=== PATIENT | male | born 1990 | race Two or more races ===

== ENCOUNTER → 2016-09-07 | Outpatient (REF) | payer OTHER | LOC: M SFHCLERA 12:34 | PROVIDERS: ATTEND Nurse Practitioner Family | DX: R50.9 Fever, unspecified (principal) ==

== ENCOUNTER → 2017-04-28 | Outpatient (CLI) | payer OTHER ==
[~2017-04-28] MED LIST: IBUP-1114 PO; LISI10TA4 PO
[2017-04-28 13:41] LABS: MEAN CORPUSCULAR HEMOGLOBIN 28.7 pg (27.0-33.0); MEAN CORPUSCULAR HGB CONC 33.3 g/dl (32.0-36.5); MEAN CORPUSCULAR VOLUME 86.2 fl (80.0-96.0); RED CELL DISTRIBUTION WIDTH 13.2 % (11.5-14.5); WHITE BLOOD COUNT 6.9 10^3/uL (4.0-10.0)
[2017-04-28 13:44] LABS: ANION GAP 3 MEQ/L (8-16); BLOOD UREA NITROGEN 23 MG/DL (7-18); CALCIUM LEVEL 9.8 MG/DL (8.5-10.1); CARBON DIOXIDE LEVEL 33 MEQ/L (21-32); CHLORIDE LEVEL 102 MEQ/L (98-107); GLOMERULAR FILTRATION RATE > 60.0 (>60); GLUCOSE, FASTING 80 MG/DL (70-105); POTASSIUM SERUM 4.5 MEQ/L (3.5-5.1); SODIUM LEVEL 138 MEQ/L (136-145)
[2017-04-28 13:45] LABS: INR 0.95
== END ==
LOC: M SMT 08:53
PROVIDERS: ATTEND Nurse Practitioner Women's Health
DX: N50.3 Cyst of epididymis (principal); Z01.818 Encounter for other preprocedural examination

== ENCOUNTER → 2017-05-03 | Outpatient (CLI) | payer OTHER ==
--- NOTE | 2017-05-04 05:24 | REP ---
Clinical: Acute renal insufficiency history of hypertension. Technique: Real time bae scale ultrasound examination using curved array transducer. Findings: The bilateral kidneys are normal in contour, size, echogenicity, and reniform shape without hydronephrosis, nephrolithiasis, cystic or mass lesion. No perinephric fluid collections are identified. Right kidney measures 10.7 x 6.8 x 4.4 cm. Left kidney measures 12.4 x 5.4 x 5.9 cm. Bladder is normal in appearance without wall thickening or mass lesion and bilateral ureteral jets are identified. Prevoid bladder measures 10.9 x 9.9 x 9.7 cm (543 ml). Prostate gland is grossly unremarkable and measures 3.3 x 4.1 x 3.1 cm (22 ml). Impression: Normal renal ultrasound. Signed by Roosevelt Azul MD 05/04/2017 05:15 A
== END ==
LOC: M SMT 07:59
PROVIDERS: ATTEND Nurse Practitioner Women's Health
DX: N28.9 Disorder of kidney and ureter, unspecified (principal)

== ENCOUNTER 2017-06-09 08:26 | Day surgery (SDC) | payer OTHER ==
[~2017-06-09] VITALS: Ht 170.2 cm; Wt 99.3 kg
[2017-06-09] MEDS ORDERED: PROPOFOL 200 MG/20 ML VIAL As Ordered ONE (08:36)
[2017-06-09] MEDS ORDERED: LIDOCAINE 2% INJ 100 MG/5 ML SDV (FOR ANES.) As Ordered ONE (08:36)
[2017-06-09] MEDS ORDERED: fentaNYL 100 MCG/2 ML INJECTION (J3010) As Ordered ONE (08:37)
[2017-06-09] MEDS ORDERED: MIDAZOLAM INJ 2 MG/2 ML VIAL (J2250) As Ordered ONE (08:37)
[2017-06-09] MEDS ORDERED: LR 1,000 ML IV ONE (09:00)
[2017-06-09] MEDS ORDERED: LIDOCAINE 1% MDV 20ML VIAL SQ PRN (09:00)
[2017-06-09] MEDS ORDERED: BUPIVACAINE HCL 0.25% 30 ML VIAL As Ordered ONE (09:18)
[2017-06-09] MEDS ORDERED: dexameTHASONE 4 MG/ML 1ML VIAL (J1100) As Ordered ONE (09:58)
[2017-06-09] MEDS ORDERED: ePHEDrine SULFATE 25 MG/5 ML(5MG/ML) SYRINGE As Ordered ONE (09:58)
[2017-06-09] MEDS ORDERED: ONDANSETRON 4MG/2ML VIAL (J2405) As Ordered ONE (09:58)
[2017-06-09] MEDS ORDERED: KETOROLAC 60 MG/2 ML VIAL (J1885) As Ordered ONE (09:58)
[2017-06-09] MEDS ORDERED: BACITRACIN OINT 30GM As Ordered ONE (10:23)
[2017-06-09] MEDS ORDERED: TYLE650T35 PO (10:44)
[2017-06-09] MEDS ORDERED: BACT800T5 PO (10:44)
[2017-06-09] MEDS ORDERED: fentaNYL 100 MCG/2 ML INJECTION (J3010) IV PRN (11:00)
[2017-06-09] MEDS ORDERED: PERCOCET 5MG/325MG TAB PO PRN (11:00)
[2017-06-09] MEDS ORDERED: LR 1,000 ML IV SCH (11:00)
[2017-06-09] MEDS ORDERED: ONDANSETRON 4MG/2ML VIAL (J2405) IV PRN (11:00)
[2017-06-09 11:45] VITALS: BP 124/59
--- NOTE | 2017-06-10 07:27 | RO ---
DATE OF PROCEDURE: 06/09/2017 PREPROCEDURE DIAGNOSIS: Left epididymal cyst. POSTPROCEDURE DIAGNOSIS: Left epididymal cyst. FINDINGS: Left epididymal cyst of about 3 cm in diameter. PROCEDURE: Left epididymal cyst excision. SURGEON: Ottoniel Vaz MD CELERY TIER: None. ANESTHESIA: General. COMPLICATIONS: None. ESTIMATED BLOOD LOSS: Minimal. HISTORY OF THE PRESENT ILLNESS: A 26-year-old male patient who has a left epididymal cyst, and it is painful. For this reason, he has consented for a left epididymal cyst excision. DESCRIPTION OF PROCEDURE: In a patient in supine position, after prepping and draping the area of concern, which included the entire genitalia and abdomen, we started by doing a transverse incision for about 4 cm in length in the left hemiscrotal sac. With electro Bovie cautery, we opened the left hemiscrotal wall and opened the tunica vaginalis longitudinally and inverted it with #3-0 inversion of the tunica vaginalis. We then identified the epididymal cyst in the head of the epididymis and with cuticular scissors, we actually could excise the cyst completely and send it for permanent pathology analysis. We then repaired the tunica vaginalis on top of the epididymis with a #4-0 running chromic and then put the testicle inside the scrotal sac and closed the scrotal sac in two layers with a running chromic #3-0 the first layer and a running #3-0 chromic in the scrotal skin. We then placed Bacitracin, fluffs and scrotal support. PLAN: The patient will go home with antibiotic pain medication, followup in 2 weeks at [facility] [place]. He may shower in 3 days. No heavy lifting for 1 month. Cyst was sent for permanent pathology analysis.
== END 2017-06-09 12:12 | disposition home or self-care (01) ==
LOC: M SDC 08:26
PROVIDERS: ATTEND Urology
DX: N50.3 Cyst of epididymis (principal); I10 Essential (primary) hypertension; Z79.899 Other long term (current) drug therapy
CPT/HCPCS: 54840; 88305; J1100; J2250; J2405; J3010

== ENCOUNTER → 2017-06-17 | Outpatient (CLI) | payer OTHER ==
[~2017-06-17] MED LIST changes: +BACT800T5 PO; +PROHANCE 279.3MG/ML 15ML VIAL (A9576) As Ordered ONE; +PROHANCE 279.3MG/ML 5ML VIAL (A9576) As Ordered ONE; +TYLE650T35 PO
--- NOTE | 2017-06-21 10:04 | REP ---
MRI ANKLE WITHOUT WITH CONTRAST: 06/17/2017. Comparison: 05/17/2017 MRI, x-ray 05/07/2017 at [facility]. Clinical history: Soft tissue mass left ankle anterolaterally. Seen are soft tissue swelling by x-ray. An ultrasound identified a mass but is not available to me. Technique and technique: Coronal T1 and T2 STIR, sagittal T1 and T2 STIR with axial T1 and fat suppressed T2 sequences. Subsequently T1 fat suppressed axial and sagittal images with coronal fat suppressed T2 followed by infusion of 910 mL ProHance and repeat of those sequences. Markers placed over the region of the palpable finding. Scanning again shows that soft tissue mass anterolateral aspect of the ankle in the region of the sinus tarsi. There is adjacent edema. Some reactive marrow edema and cystic changes in the adjacent calcaneus, it abuts the lateral margin of the talus. The subtalar joints are otherwise intact and without effusion. There may be slight thinning of the cortex of the anterior margin of the posterior subtalar joint with adjacent edema in the neck that calcaneus. No marrow abnormalities in the talus and nor destructive/erosive changes of that bone. Lesion is anterior to the peroneus tendons. It is inferior and anterior to the distal tip of the medial malleolus. The AT, EDL and EHL tendons were grossly intact. The PT, FDL, FHL and Achilles tendons insertions were intact. I do not see to the synovitis or enhancement about the tendons nor abnormal signal in the tendons. Other than the marrow at the junction of the body and anterior process of the calcaneus laterally. There is no other marrow signal abnormality in the ankle and hindfoot. There is no evidence of a joint effusion. Anterior talofibular and tibiotalar ligaments are seen subjacent to the mass. Hyperintense signal on the fat-suppressed T1 and the standard fat suppressed T2 images does not show significant enhancement on the postcontrast study. There is no abnormal enhancement in the marrow of any of the bones. There are no other soft tissue masses visible. Impression: 1. 4.3 x 1.4 x 2.8 cm hyperintense T2 and intermediate signal standard T1, hyperintense fat suppressed T1 sequence without significant enhancement. The tendons, adjacent ligaments, and bone marrow with the exception of the region of the calcaneus adjacent appears intact. I cannot clearly define destructive changes in the cortex of any of the bones. No joint effusion or osteochondral defect in the talar dome. Tendons and ligaments intact. Neoplasm, fibromatosis or other pathologies are suspected. Signed by Will Angel MD 06/22/2017 05:51 P
== END ==
LOC: M RAD 09:28
PROVIDERS: ATTEND Orthopaedic Surgery
DX: M85.9 Disorder of bone density and structure, unspecified (principal)

== ENCOUNTER → 2017-11-25 | Outpatient (CLI) | payer OTHER | LOC: M SLEEP 19:36 | DX: G47.33 Obstructive sleep apnea (adult) (pediatric) (principal) | CPT/HCPCS: 95810 ==

== ENCOUNTER → 2017-12-22 | Outpatient (CLI) | payer OTHER | LOC: M RAD 08:45 | DX: M79.9 Soft tissue disorder, unspecified (principal); M12.271 Villonodular synovitis (pigmented), right ankle and foot; Z98.890 Other specified postprocedural states | CPT/HCPCS: 73721 ==

== ENCOUNTER → 2017-12-23 | Outpatient (CLI) | payer OTHER | LOC: M SLEEP 19:32 | DX: G47.33 Obstructive sleep apnea (adult) (pediatric) (principal) ==

== ENCOUNTER → 2018-01-18 | Outpatient (REF) | payer OTHER ==
[2018-01-18 14:10] LABS: SEMEN APPEARANCE OPAQUE (OPAQUE); SEMEN VISCOSITY LIQUID (LIQUID); SEMEN VOLUME 1.5 ml (4.0-5.0); SPERM CONCENTRATION 70.2 M/ml (>=15.0); WBC CONCENTRATION <=1 M/ml (<=1 M/ml)
[2018-01-18 14:11] LABS: % NORMAL FORMS 9 % (>=4); IMMOTILITY 54 %; NON PROGRESSIVE MOTILITY (c) 8 %; PROGRESSIVE MOTILITY (a) 38 % (>=32); SPERM# 105.3 M/Ejac (>=39); TOTAL FUNCTIONAL 8.3 M/Ejac.; TOTAL MOTILITY 46 % (>=40); TOTAL PROGRESSIVE SPERM 39.7 M/Ejac.
== END ==
LOC: M LAB REF 11:28
DX: N46.9 Male infertility, unspecified (principal)
CPT/HCPCS: 89320

== ENCOUNTER 2018-03-04 07:23 | Day surgery (SDC) | payer OTHER ==
[2018-03-04] MEDS: NS 1,000 ML IV (06:00)
[~2018-03-04 07:23] MED LIST changes: -BACT800T5 PO; -IBUP-1114 PO; +LIDOCAINE 2% MDV 20 ML VIAL As Ordered; -LISI10TA4 PO; -PROHANCE 279.3MG/ML 15ML VIAL (A9576) As Ordered ONE; -PROHANCE 279.3MG/ML 5ML VIAL (A9576) As Ordered ONE; +PROPOFOL 200 MG/20 ML VIAL As Ordered; -TYLE650T35 PO
== END 2018-03-04 10:15 | disposition home or self-care (01) ==
LOC: M OPP 10:15
DX: K92.1 Melena (principal); K52.9 Noninfective gastroenteritis and colitis, unspecified; K63.89 Other specified diseases of intestine; I10 Essential (primary) hypertension; M54.5 Low back pain; G47.30 Sleep apnea, unspecified; M15.4 Erosive (osteo)arthritis; M85.60 Other cyst of bone, unspecified site; D48.0 Neoplasm of uncertain behavior of bone and articular cartilage; Z79.899 Other long term (current) drug therapy
CPT/HCPCS: 45380

== ENCOUNTER → 2018-05-18 | Outpatient (CLI) | payer OTHER ==
[2018-05-18 11:21] LABS: ALBUMIN 4.3 GM/DL (3.2-5.2); ALBUMIN/GLOBULIN RATIO 1.39 (1.00-1.93); ALKALINE PHOSPHATASE 68 U/L (45-117); ALT/SGPT 38 U/L (12-78); AST/SGOT 27 U/L (7-37); BILIRUBIN,DIRECT < 0.1 MG/DL (0.0-0.2); BILIRUBIN,TOTAL 0.3 MG/DL (0.2-1.0); C REACTIVE PROTEIN QUANTITATIV < 0.30 MG/DL (0.00-0.30); TOTAL PROTEIN 7.4 GM/DL (6.4-8.2)
[2018-05-18 11:27] LABS: HEPATITIS B SURFACE ANTIBODY NEGATIVE (POSITIVE)
[2018-05-18 11:38] LABS: HEPATITIS B SURFACE ANTIGEN NEGATIVE (NEGATIVE)
[2018-05-18 12:07] LABS: ERYTHROCYTE SEDIMENTATION RATE 2 mm/hr (0-15)
[2018-05-20 00:09] LABS: EBV AB TO NUCLEAR ANTIGEN <18.0 U/mL (0.0-17.9); EBV VIRAL CAPSID AG IgG <18.0 U/mL (0.0-17.9); EBV VIRAL CAPSID AG IgM <36.0 U/mL (0.0-35.9); HEPATITIS B CORE ANTIBODY IGG Negative (Negative)
[2018-05-20 14:27] LABS: QuantiFERON-TB Gold Plus Negative (Negative)
[2018-05-23 09:44] LABS: TPMT Enzyme 29.9 EU (>21.0)
== END ==
LOC: M LAB 10:04
DX: K52.3 Indeterminate colitis (principal)
CPT/HCPCS: 80076

== ENCOUNTER → 2018-09-01 | Outpatient (REF) | payer OTHER ==
[~2018-09-01] MED LIST changes: +AMLO10TA5 PO; +BACT800T5 PO; +IBUP-1114 PO; -LIDOCAINE 2% MDV 20 ML VIAL As Ordered; +LISI10TA4 PO; -PROPOFOL 200 MG/20 ML VIAL As Ordered; +TYLE650T35 PO; +ZYRTTAB8 PO
[2018-09-01 18:32] LABS: APPEARANCE, URINE CLEAR (CLEAR); BACTERIA, URINE AUTO NEGATIVE (NEGATIVE); BILIRUBIN, URINE AUTO NEGATIVE (NEGATIVE); BLOOD, URINE BLOOD NEGATIVE (NEGATIVE); COLOR, URINE YELLOW (YELLOW); GLUCOSE, URINE (UA) AUTO NEGATIVE (NEGATIVE); KETONE, URINE AUTO NEGATIVE (NEGATIVE); LEUKOCYTE ESTERASE, URINE AUTO NEGATIVE (NEGATIVE); MUCUS, URINE SMALL (NEGATIVE); NITRITE, URINE AUTO NEGATIVE (NEGATIVE); PROTEIN, URINE AUTO NEGATIVE (NEGATIVE); RBC, URINE AUTO 0 /HPF (0-3); SQUAMOUS EPITHELIAL CELL UR AU 0 /HPF (0-6); UROBILINOGEN, URINE AUTO 0.2 mg/dL (0.0-2.0); WBC, URINE AUTO 0 /HPF (0-3)
[2018-09-01 19:30] LABS: CHLAMYDIA DNA AMPLIFICATION NEGATIVE (NEGATIVE); GC DNA AMPLIFICATION NEGATIVE (NEGATIVE)
== END ==
LOC: M SMT 17:00
PROVIDERS: ATTEND Nurse Practitioner Family
DX: N50.812 Left testicular pain (principal)
CPT/HCPCS: 81001; 87086; 87491; 87591; G0463

== ENCOUNTER → 2018-10-11 | Outpatient (CLI) | payer OTHER ==
[2018-10-11 10:25] LABS: BASO # 0.1 10^3/uL (0.0-0.2); BASO % 1.1 % (0.0-1.0); EOS # 0.3 10^3/uL (0.0-0.50); EOS % 4.8 % (0.0-3.0); HEMOGLOBIN 15.4 g/dl (13.5-17.5); LYMPH # 1.4 10^3/uL (1.5-6.5); LYMPH % 22.4 % (24.0-44.0); MEAN CORPUSCULAR HEMOGLOBIN 29.3 pg (27.0-33.0); MEAN CORPUSCULAR HGB CONC 32.1 g/dl (32.0-36.5); MEAN CORPUSCULAR VOLUME 91.4 fl (80.0-96.0); MONO # 0.3 10^3/uL (0.0-0.8); MONO % 5.4 % (0.0-5.0); NEUTROPHILS # 4.1 10^3/uL (1.8-7.7); PLATELET COUNT, AUTOMATED 323 10^3/uL (150-450); RED BLOOD COUNT 5.25 10^6/uL (4.30-6.10); WHITE BLOOD COUNT 6.3 10^3/uL (4.0-10.0)
[2018-10-11 11:01] LABS: ALBUMIN 4.2 GM/DL (3.2-5.2); ALT/SGPT 25 U/L (12-78); BILIRUBIN,DIRECT 0.2 MG/DL (0.0-0.2); BILIRUBIN,TOTAL 0.5 MG/DL (0.2-1.0); BLOOD UREA NITROGEN 12 MG/DL (7-18); CREATININE FOR GFR 1.19 MG/DL (0.70-1.30); GLOMERULAR FILTRATION RATE > 60.0 (>60); TOTAL PROTEIN 7.5 GM/DL (6.4-8.2)
== END ==
LOC: M LAB 08:50
PROVIDERS: ATTEND Internal Medicine Gastroenterology
DX: K52.3 Indeterminate colitis (principal); K62.5 Hemorrhage of anus and rectum; R19.7 Diarrhea, unspecified